=== PATIENT | female | born 1935 | race Caucasian/White ===

== ENCOUNTER 2020-05-28 08:28 | Outpatient (REF) | payer MEDICARE, SELFPAY ==
--- NOTE | 2020-05-28 08:34 | MM_ITS ---
EXAMINATION: MM SCREENING DIGITAL BREAST TOMOSYNTHESIS, BILATERAL CLINICAL INFORMATION: Screening. Asymptomatic. The lifetime risk of breast cancer based on the Tyrer-Cuzick Model is 1%. COMPARISON: Mammography: 05/24/2019, 05/01/2018, 04/28/2017 TECHNIQUE: Digital breast tomosynthesis is performed in both the craniocaudal and mediolateral oblique views along with computer-aided detection (CAD). Synthesized 2D images are generated from the tomosynthesis. FINDINGS: There are scattered areas of fibroglandular density (ACR BI-RADS breast composition Category b). There are no significant masses, abnormal calcifications, or other abnormalities. Parenchymal pattern is similar to prior studies. No significant changes. MM/MM tomosynthesis screening BI IMPRESSION: No mammographic evidence of malignancy. ASSESSMENT: BI-RADS 1: Negative RECOMMENDATION: Routine annual mammography screening. This patient's information was entered into a reminder system with a target due date for their next mammogram.
== END 2020-05-28 08:29 | disposition home or self-care (01) ==
LOC: HO.MAMMO 08:28
PROVIDERS: PCP Nurse Practitioner Family; Visit Provider Nurse Practitioner Family
DX: Z12.31 Encounter for screening mammogram for malignant neoplasm of breast (principal)
CPT/HCPCS: 77063; 77067

== ENCOUNTER 2021-01-12 08:40 | Outpatient (REF) | payer MEDICARE, SELFPAY ==
[2021-01-12 09:44] LABS: CDiff Gene PCR NEGATIVE (Negative)
[2021-01-12 11:04] LABS: Leukocytes Stool Qualitative NEGATIVE (NEGATIVE)
[2021-01-15 14:07] LABS: Fecal Fat Qualitative Normal (Normal)
[2021-01-18 00:37] LABS: Pancreatic Elastase-1 >500 mcg/g
== END 2021-01-12 08:41 | disposition home or self-care (01) ==
LOC: HO.LNP 08:40
PROVIDERS: Visit Provider Internal Medicine Gastroenterology
DX: R10.11 Right upper quadrant pain (principal); R19.7 Diarrhea, unspecified
CPT/HCPCS: 82656; 82705; 87045; 87046; 87177; 87209; 87493; 89055

== ENCOUNTER 2021-01-29 08:16 | Outpatient (REF) | payer MEDICARE, SELFPAY ==
--- NOTE | ~2021-01-29 | US_ITS ---
EXAMINATION: US ABDOMEN COMPLETE CLINICAL INFORMATION: Right upper quadrant pain, diarrhea. COMPARISON: None TECHNIQUE: Real-time imaging of the abdominal viscera. FINDINGS: PANCREAS: Normal. ABDOMINAL AORTA: The proximal, mid, and distal segments are normal in caliber. INFERIOR VENA CAVA: Visualized portions are normal. LIVER: Normal. The liver is normal in size. The liver contour is normal. Parenchymal echogenicity is normal. No focal hepatic lesion. There is no intrahepatic biliary duct dilatation seen. GALLBLADDER: Normal. The gallbladder is physiologically distended without evidence of stones, sludge, polyps, wall thickening or pericholecystic fluid. COMMON BILE DUCT: Normal in caliber measuring 0.4 cm in diameter. RIGHT KIDNEY: Normal. No hydronephrosis. No renal calculi or focal parenchymal lesions. The kidney measures 8.5 cm in maximum dimension. LEFT KIDNEY: Normal. No hydronephrosis. No renal calculi or focal parenchymal lesions. The kidney measures 9.2 cm in maximum dimension. SPLEEN: Normal. The spleen measures 7.7 cm in maximum dimension. FREE FLUID: None. US/US abdomen complete IMPRESSION: No specific abnormality identified on abdominal ultrasound. No evidence of acute cholecystitis.
== END 2021-01-29 08:17 | disposition home or self-care (01) ==
LOC: HO.US 08:16
PROVIDERS: PCP Nurse Practitioner Family; Visit Provider Internal Medicine Gastroenterology
DX: R10.11 Right upper quadrant pain (principal); R19.7 Diarrhea, unspecified
CPT/HCPCS: 76700

== ENCOUNTER 2021-08-13 08:59 | Outpatient (REF) | payer MEDICARE, SELFPAY ==
--- NOTE | ~2021-08-13 | MM_ITS ---
EXAMINATION: BONE DENSITOMETRY CLINICAL INDICATION: Osteoporosis. COMPARISON: Previous BD dated 05/24/2019 and baseline BD dated 04/06/2007. TECHNIQUE: Using a [employer] DXA System (software version: 13.1) manufactured by [employer], dual-energy x-ray absorptiometry was performed of the lumbar spine and left hip. The images are of good technical quality. Summary results are attached. FINDINGS: AP SPINE L1-L4: Current: BMD 1.026 g/cm2, Z-score 0.9, T-score -1.3, osteopenia, 4.1% decrease from previous, 2.6% decrease from baseline (<5% change is not significant). Prior: BMD 1.070 g/cm2. Baseline: BMD 1.053 g/cm2. LEFT FEMUR, NECK: Current: BMD 0.800 g/cm2, Z-score 0.8, T-score -1.7, osteopenia. Prior: BMD 0.775 g/cm2. Baseline: BMD 0.799 g/cm2. LEFT FEMUR, TOTAL: Current: BMD 0.877 g/cm2, Z-score 1.4, T-score -1.0, normal, 1.7% decrease from previous, 4.8% decrease from baseline (<5% change is not significant). Prior: BMD 0.892 g/cm2. Baseline: BMD 0.921 g/cm2. IDENTIFIED RISK FACTORS: Height loss, menopause. HISTORY OF FRACTURE: None listed. MEDICATIONS: Calcium supplements or multivitamin, vitamin D. MM/XR DEXA axial skeleton IMPRESSION: 1. DIAGNOSIS: Osteopenia based on the lowest T-score value of -1.7 in the femoral neck applying World Health Organization criteria. 2. 10-YEAR FRACTURE RISK PREDICTION, FRAX: Major osteoporotic fracture (clinical spine, forearm, hip or shoulder) 13.4%. Hip fracture 4.0%. 3. Treatment Recommendations: NOF guidelines recommend consideration for treatment in postmenopausal women and men age 50 and older presenting with the following: -A hip or vertebral (clinical or morphometric) fracture. -T-score less than or equal to -2.5 at the femoral neck or spine after appropriate evaluation to exclude secondary causes. -Low bone mass at the hip or spine and a 10-year fracture probability by FRAX of greater than or equal to 3% for hip fracture or greater than or equal to 20% for major osteoporotic fracture based on the [place] adapted WHO algorithm. 4. Other Recommendations: All treatment decisions require clinical judgment and consideration of individual patient factors, including patient preferences, comorbidities, previous drug use, risk factors not captured in the FRAX model (e.g. frailty, falls, vitamin D deficiency, increased bone turnover, interval significant decline in bone density) and possible under or overestimation of fracture risk by FRAX. Additional medical evaluation for secondary cause of low bone mineral density may be appropriate. FUTURE SCAN RECOMMENDATION: People with diagnosed cases of osteoporosis or at high risk for fracture should have regular bone mineral density tests. For patients eligible for Medicare, routine testing is allowed once every 2 years. The testing frequency can be increased to one year for patients who have rapidly progressing disease, those who are receiving or discontinuing medical therapy to restore bone mass, or have additional risk factors.
--- NOTE | ~2021-08-13 | MM_ITS ---
EXAMINATION: MM SCREENING DIGITAL BREAST TOMOSYNTHESIS, BILATERAL CLINICAL INFORMATION: Screening. Asymptomatic. The lifetime risk of breast cancer based on the Tyrer-Cuzick Model is 0.5%. COMPARISON: Mammography: May 28, 2020 and studies dating back to April 05, 2016 TECHNIQUE: Digital breast tomosynthesis is performed in both the craniocaudal and mediolateral oblique views along with computer-aided detection (CAD). Synthesized 2D images are generated from the tomosynthesis. FINDINGS: The breasts are almost entirely fatty (ACR BI-RADS breast composition Category a). There are no significant masses, abnormal calcifications, or other abnormalities. MM/MM tomosynthesis screening BI IMPRESSION: There are no significant changes from prior study. ASSESSMENT: BI-RADS 1: Negative RECOMMENDATION: Routine annual mammography screening. This patient's information was entered into a reminder system with a target due date for their next mammogram.
== END 2021-08-13 09:00 | disposition home or self-care (01) ==
LOC: HO.MAMMO 08:59
PROVIDERS: PCP Nurse Practitioner Family; Visit Provider Nurse Practitioner Family
DX: Z12.31 Encounter for screening mammogram for malignant neoplasm of breast (principal); Z13.820 Encounter for screening for osteoporosis; M85.80 Other specified disorders of bone density and structure, unspecified site; Z78.0 Asymptomatic menopausal state; Z79.899 Other long term (current) drug therapy
CPT/HCPCS: 77063; 77067; 77080

== ENCOUNTER 2021-08-13 09:26 | Outpatient (REF) | payer MEDICARE, SELFPAY | END 2021-08-13 09:27 | disposition home or self-care (01) | LOC: HO.MAMMO 09:26 | PROVIDERS: Visit Provider Nurse Practitioner Family | DX: Z13.89 Encounter for screening for other disorder (principal) ==

== ENCOUNTER 2022-08-16 10:07 | Outpatient (REF) | payer MEDICARE, SELFPAY ==
--- NOTE | ~2022-08-16 | MM_ITS ---
EXAMINATION: MM SCREENING DIGITAL BREAST TOMOSYNTHESIS, BILATERAL CLINICAL INFORMATION: Screening. Asymptomatic. COMPARISON: Mammography: 08/13/2021, 05/28/2020, 05/24/2019 TECHNIQUE: Digital breast tomosynthesis is performed in both the craniocaudal and mediolateral oblique views along with computer-aided detection (CAD). Synthesized 2D images are generated from the tomosynthesis. FINDINGS: There are scattered areas of fibroglandular density (ACR BI-RADS breast composition Category b). There are no significant masses, abnormal calcifications, or other abnormalities. Parenchymal pattern is similar to prior studies. There is no developing density or architectural abnormality. The axilla and skin contours are unremarkable. No significant changes. MM/MM tomosynthesis screening BI IMPRESSION: No mammographic evidence of malignancy. ASSESSMENT: BI-RADS 1: Negative RECOMMENDATION: Routine annual mammography screening. This patient's information was entered into a reminder system with a target due date for their next mammogram.
== END 2022-08-16 10:08 | disposition home or self-care (01) ==
LOC: HO.MAMMO 10:07
PROVIDERS: PCP Nurse Practitioner Family; Visit Provider Nurse Practitioner Family
DX: Z12.31 Encounter for screening mammogram for malignant neoplasm of breast (principal)
CPT/HCPCS: 77063; 77067

== ENCOUNTER 2023-02-26 10:21 | Outpatient (AMB) | payer MEDICARE, SELFPAY ==
[2023-02-26 10:59] VITALS: BP 124/74; PULSE 71; TEMP 36.7; O2SAT 98; BMI 22.7
--- NOTE | 2023-02-26 10:59 | AM.OFFWIN_ITS ---
Intake Vital Signs 02/26/23 10:59 Height 5 ft 4 in Weight 132 lb 8 oz BMI 22.7 BP 124/74 Blood Pressure Location Lt brachial Position Sitting Pulse 71 Pulse Source Pulse Oximeter Temp 98.1 F Temp Source Oral Pulse Oximetry (%) 98 Oxygen Delivery Method Room Air Oxygen Flow Rate 98.1 Intake Visit Reasons: [employer]- Lt hand index infected? Intake Note: Patient cut finger opening a window on Tuesday, may be infected. Patient Tobacco Use Status: Former Tobacco user Allergies Penicillins [PCN] Allergy (Mild, Unverified 02/26/23 11:02) RASH Do you need a note to return to daycare/school/sports/work: No HPI HPI Comments History of Present Illness Details This is a 87-year-old female who presents to the office today for sick visit. Patient complaining of a wound to her left index finger, which she believes may be infected. Patient states she cut her finger on a window approximately 4 days ago. She has been washing the area with soap and water and covering it with a bandage. Patient started to notice purulence drainage and some mild erythema yesterday. She denies any fevers or chills. She otherwise feels well without any systemic symptoms. [facility] Social History Patient Tobacco Use Status: Former Tobacco user Review of Systems Const All systems reviewed & are unremarkable except as noted in HPI and below Reports no additional complaints Eyes Reports no additional complaints ENT Reports no additional complaints Card Reports no additional complaints Resp Reports no additional complaints GI Reports no additional complaints Reports no additional complaints Musc Reports no additional complaints Skin/Breast Reports system reviewed and no additional complaints, except as documented Neuro Reports no additional complaints Psych Reports no additional complaints Endo Reports no additional complaints Nish/Lymph Reports no additional complaints Aller/Immun Reports no additional complaints Physical Exam Vital Signs: Last Vital Signs Temp 98.1 F 02/26/23 10:59 Pulse 71 02/26/23 10:59 BP 124/74 02/26/23 10:59 Pulse Ox 98 02/26/23 10:59 Oxygen Delivery Method Room Air 02/26/23 10:59 Oxygen Flow Rate 98.1 02/26/23 10:59 BMI result Body Mass Index 22.7 Const General: cooperative, healthy appearing, no acute distress and well developed Orientation/consciousness: patient oriented x3 HEENT Head: Yes normal to inspection Ears: hearing grossly normal bilaterally General nose exam: Normal external nose present Face and sinus: Yes normal facial exam Mouth: Normal oral and palatal mucosa present Eyes General: appearance normal, both eyes and all related structures Pupils: Equal, round and reactive pupils present EOM: EOMs intact bilaterally Resp Effort & Inspection: normal respiratory effort and no respiratory distress Auscultation: clear to auscultation bilaterally Cardio Rate: regular rate Rhythm: regular rhythm Heart sounds: no gallops, no murmurs and no rubs Peripheral pulses: Peripheral pulses 2+ throughout GI Inspection: No distended Palpation (GI): Soft to palpation and nontender Auscultation: normal bowel sounds Skin Other: Small linear abrasion to the palmar aspect of the distal phalanx of the left 2nd finger with very mild surrounding erythema. No drainage noted upon my evaluation. The abrasion appears to be healing with granulation tissue present. No lymphangitic streaking. General skin exam: no rashes or lesions noted Neuro General: patient oriented x3 Cranial nerves: Yes CN's II-XII intact bilaterally and Yes Equal, round and reactive pupils present Gait exam (Neuro): Normal gait present Motor exam (neuro): 5/5 motor strength present throughout Extrem General: Yes normal to inspection, Yes full ROM and Yes no clubbing, cyanosis or edema Psych Appearance: grossly normal Mental Status: mental status grossly normal Assessment & Plan Assessment & Plan (1) Abrasion of left index finger: Code(s): S60.411A - Abrasion of left index finger, initial encounter (2) Cellulitis of left finger: Code(s): L03.012 - Cellulitis of left finger Plan This is an 87-year-old female who presents to the office with an abrasion to her left index finger with erythema and drainage. Upon my evaluation, there is a well-healing linear abrasion to the left index finger with mild surrounding erythema and no purulence drainage. History and physical most consistent with mild cellulitis surrounding abrasion of the left index finger. Patient's vital signs are stable, her physical exam is otherwise benign, and she is overall nontoxic appearing. Patient is safe to be discharged home. Bacitracin was applied and a bandage was applied to the finger. Patient was sent home on p.o. sulfamethoxazole trimethoprim twice daily x5 days. Patient was advised to take probiotics while she is using antibiotics. She was advised to follow-up here or proceed directly to the emergency room if he were to develop worsening erythema, worsening drainage, fever/chills, or lymphangitic streaking. Patient verbalizes her understanding and she is in agreement with the plan. Medications: New sulfamethoxazole-trimethoprim 800-160 mg 1 tab PO BID 10 tabs 0RF Coding Level of Care Code New Pt Level 3 (61539) Diagnoses Abrasion of left index finger S60.411A Cellulitis of left finger L03.012
== END 2023-02-26 11:52 | disposition home or self-care (01) ==
PROVIDERS: PCP Nurse Practitioner Family; Visit Provider Physician Assistant Medical
DX: S60.411A Abrasion of left index finger, initial encounter (principal); L03.012 Cellulitis of left finger
CPT/HCPCS: 99203

== ENCOUNTER 2023-04-04 09:04 | Outpatient (AMB) | payer MEDICARE, SELFPAY ==
[2023-04-04 09:15] VITALS: BP 122/70; PULSE 70; TEMP 36.6; O2SAT 97; BMI 22.7
--- NOTE | 2023-04-04 09:15 | MHC.OFFWIV ---
Intake Vital Signs 04/04/23 09:15 Height 5 ft 4 in Weight 59.874 kg BMI 22.7 BP 122/70 Blood Pressure Location Lt brachial Position Sitting Pulse 70 Pulse Source Pulse Oximeter Temp 97.9 F Temp Source Temporal Artery Scan Pulse Oximetry (%) 97 Intake Visit Reasons: EP LT leg pain Intake Note: pt is here for c/o left leg pain Patient Tobacco Use Status: Former Tobacco user Allergies Penicillins [PCN] Allergy (Mild, Verified 04/04/23 09:17) RASH Do you need a note to return to daycare/school/sports/work: Yes HPI EP LT leg pain HPI Details Patient presents with left knee pain after some missed stepping on stairs 2 weeks ago. She notes the pain is comes and goes but is becoming more frequent and more painful. She denies fall, history of issues with this knee. She does admit to clicking and some weakness with the knee. No edema redness of the knee or lower leg. She has taken Tylenol with occasional relief. [facility] Social History Patient Tobacco Use Status: Former Tobacco user Review of Systems Const Reports as per HPI and Reports no additional complaints Musc Reports no additional complaints and Reports as per HPI Skin/Breast Denies lesions Neuro Reports no additional complaints and Reports as per HPI Physical Exam Vital Signs: Last Vital Signs Temp 97.9 F 04/04/23 09:15 Pulse 70 04/04/23 09:15 BP 122/70 04/04/23 09:15 Pulse Ox 97 04/04/23 09:15 BMI result Body Mass Index 22.7 Const General: cooperative, comfortable and no acute distress Orientation/consciousness: patient oriented x3 Resp Effort & Inspection: normal respiratory effort Auscultation: clear to auscultation bilaterally Cardio Rate: regular rate Rhythm: regular rhythm Heart sounds: S1 normal heart sound present and S2 normal heart sound present Neuro General: patient oriented x3 Extrem Right lower extremity: normal to inspection Left lower extremity: normal to inspection, full ROM, normal capillary refill, hip/thigh Details: normal to inspection and normal ROM and knee Details: normal to inspection, abnormal ROM Details: pain with active ROM (Flexion past 90 degrees in full extension pain seems to be in the distal lateral hamstring) and pain with passive ROM (Same ranges active), Jae's Test Details: positive medially, crepitus Location: at the knee and other (No calf tenderness no redness no calor no palpable cord no edema); no tenderness (Cannot elicit joint line or patellar tenderness nor tenderness of the musculature or calf.), no swelling, no abrasions, no ecchymosis and no unusual warmth; no cyanosis, no edema and joint enlargement noted Results Reviewed Results Reviewed: X-ray of left knee contemporaneously read by me without acute finding or severe DJD will report radiology results as available at different. Assessment & Plan Assessment & Plan (1) Knee pain, acute: Code(s): M25.569 - Pain in unspecified knee Qualifiers: Laterality: left Qualified Code(s): M25.562 - Pain in left knee Plan: Advised patient of taking Tylenol as directed consistently for several days. Rest ice and elevate as much as possible. Avoid stairs when possible or lead with good leg as needed. I did offer her a PT referral she declines at this time. I advised her if symptoms do not improve over the next week or 2 she should follow up with PCP to consider ortho referral or revisit considering physical therapy. Orders: Orders XR knee LT 4V Today M25.569 - Pain in unspecified knee Coding Level of Care Code New Pt Level 4 (04949) Diagnoses Acute pain of left knee M25.562 Laterality: left
== END 2023-04-04 09:54 | disposition home or self-care (01) ==
PROVIDERS: PCP Nurse Practitioner Family; Visit Provider Physician Assistant
DX: M25.562 Pain in left knee (principal)
CPT/HCPCS: 99204

== ENCOUNTER 2023-04-04 09:26 | Outpatient (REF) | payer MEDICARE, SELFPAY ==
--- NOTE | ~2023-04-04 | XR_ITS ---
EXAMINATION: XR KNEE, LEFT CLINICAL INFORMATION: Pain COMPARISON: None available. TECHNIQUE: Four views of the left knee. FINDINGS: Osteopenia. Bone alignment is normal. No fracture or dislocation. The joint spaces are normal. There is a cortical thickening and increased sclerosis of the lateral distal femoral shaft, question representing an old fibrous cortical defect or nonossifying fibroma. There is no joint effusion. Mild atherosclerotic disease. XR/XR knee LT 4V IMPRESSION: Osteopenia. Increased cortical sclerosis of the lateral distal femoral shaft, question representing an old nonossifying fibroma or fibrous cortical defect. This could be further evaluated with bone scan if clinically indicated.
== END 2023-04-04 09:27 | disposition home or self-care (01) ==
LOC: HO.HMGCX 09:26
PROVIDERS: PCP Nurse Practitioner Family; Visit Provider Physician Assistant
DX: M25.562 Pain in left knee (principal)
CPT/HCPCS: 73564

== ENCOUNTER 2023-08-31 13:28 | Outpatient (REF) | payer MEDICARE, SELFPAY ==
--- NOTE | ~2023-08-31 | MM_ITS ---
EXAMINATION: BONE DENSITOMETRY CLINICAL INDICATION: Osteopenia. COMPARISON: Previous BD dated 08/13/2021 and baseline BD dated 04/06/2007. TECHNIQUE: Using a [employer] DXA System (software version: 13.1) manufactured by [employer], dual-energy x-ray absorptiometry was performed of the lumbar spine and left hip. The images are of good technical quality. Summary results are attached. FINDINGS: LEFT FEMUR, NECK: Current: BMD 0.779 g/cm2, Z-score 0.6, T-score -1.9, osteopenia. Prior: BMD 0.800 g/cm2. Baseline: BMD 0.799 g/cm2. LEFT FEMUR, TOTAL: Current: BMD 0.843 g/cm2, Z-score 1.1, T-score -1.3, osteopenia, 3.9% decrease from previous, 8.5% decrease from baseline (<5% change is not significant). Prior: BMD 0.877 g/cm2. Baseline: BMD 0.921 g/cm2. AP SPINE L1-L4: Current: BMD 1.019 g/cm2, Z-score 0.7, T-score -1.3, osteopenia, 0.7% decrease from previous, 3.2% decrease from baseline (<5% change is not significant). Prior: BMD 1.026 g/cm2. Baseline: BMD 1.053 g/cm2. IDENTIFIED RISK FACTORS: Menopause. HISTORY OF FRACTURE: None listed. MEDICATIONS: Calcium, vitamin D. MM/XR DEXA axial skeleton IMPRESSION: 1. DIAGNOSIS: Osteopenia based on the lowest T-score value of -1.9 in the femoral neck applying World Health Organization criteria. 2. 10-YEAR FRACTURE RISK PREDICTION, FRAX: Major osteoporotic fracture (clinical spine, forearm, hip or shoulder) 15.1%. Hip fracture 4.7%. 3. Treatment Recommendations: NOF guidelines recommend consideration for treatment in postmenopausal women and men age 50 and older presenting with the following: -A hip or vertebral (clinical or morphometric) fracture. -T-score less than or equal to -2.5 at the femoral neck or spine after appropriate evaluation to exclude secondary causes. -Low bone mass at the hip or spine and a 10-year fracture probability by FRAX of greater than or equal to 3% for hip fracture or greater than or equal to 20% for major osteoporotic fracture based on the [place] adapted WHO algorithm. 4. Other Recommendations: All treatment decisions require clinical judgment and consideration of individual patient factors, including patient preferences, comorbidities, previous drug use, risk factors not captured in the FRAX model (e.g. frailty, falls, vitamin D deficiency, increased bone turnover, interval significant decline in bone density) and possible under or overestimation of fracture risk by FRAX. Additional medical evaluation for secondary cause of low bone mineral density may be appropriate. FUTURE SCAN RECOMMENDATION: People with diagnosed cases of osteoporosis or at high risk for fracture should have regular bone mineral density tests. For patients eligible for Medicare, routine testing is allowed once every 2 years. The testing frequency can be increased to one year for patients who have rapidly progressing disease, those who are receiving or discontinuing medical therapy to restore bone mass, or have additional risk factors.
== END 2023-08-31 13:29 | disposition home or self-care (01) ==
LOC: HO.MAMMO 13:28
PROVIDERS: PCP Nurse Practitioner Family; Visit Provider Nurse Practitioner Family
DX: Z12.31 Encounter for screening mammogram for malignant neoplasm of breast (principal); Z13.820 Encounter for screening for osteoporosis; Z78.0 Asymptomatic menopausal state; M85.80 Other specified disorders of bone density and structure, unspecified site
CPT/HCPCS: 77063; 77067; 77080

== ENCOUNTER → 2023-08-31 14:00 | Outpatient (BNV) | payer MEDICARE, SELFPAY | PROVIDERS: PCP Nurse Practitioner Family; Visit Provider Radiology Diagnostic Radiology | DX: Z12.31 Encounter for screening mammogram for malignant neoplasm of breast (principal) | CPT/HCPCS: 77063; 77067 ==

== ENCOUNTER 2024-01-11 11:04 | Outpatient (AMB) | payer MEDICARE, SELFPAY ==
--- NOTE | 2024-01-11 11:16 | MHC.OFFWIV ---
Intake Vital Signs 01/11/24 11:17 Height 5 ft 4 in Weight 132 lb BMI 22.7 BP 120/70 Blood Pressure Location Rt brachial Position Sitting Pulse 72 Pulse Source Pulse Oximeter Temp 97.9 F Temp Source Temporal Artery Scan Pulse Oximetry (%) 97 Intake Visit Reasons: EP flew ears now blocked Intake Note: pt is here for ears feeling blocked Patient Tobacco Use Status: Former Tobacco user Allergies Penicillins [PCN] Allergy (Mild, Verified 01/11/24 11:17) RASH Do you need a note to return to daycare/school/sports/work: No HPI HPI Comments History of Present Illness Details Patient is an 88-year-old female complaining of feeling like her ears are blocked and she feels them popping throughout the day. She states this is occurring in both of her ears that it has been going on for 4 days. She states 4 days ago, she flew in an airplane. She states this happened before many years ago but it cleared up on its own, this time it is not. She denies any changes in her hearing, or pain in her ears. She admits to wearing hearing aids daily. [facility] Social History Patient Tobacco Use Status: Former Tobacco user Review of Systems Const All systems reviewed & are unremarkable except as noted in HPI and below Physical Exam Vital Signs: Last Vital Signs Temp 97.9 F 01/11/24 11:17 Pulse 72 01/11/24 11:17 BP 120/70 01/11/24 11:17 Pulse Ox 97 01/11/24 11:17 BMI result Body Mass Index 22.7 Const General: cooperative, healthy appearing, comfortable and no acute distress Orientation/consciousness: patient oriented x3 HEENT Head: Yes normal to inspection Ears: external ears normal, TM's normal bilaterally, EAC's normal and mastoids normal General nose exam: Normal external nose present Face and sinus: Yes normal facial exam Resp Effort & Inspection: normal respiratory effort and able to speak in complete sentences Neuro General: patient oriented x3 Assessment & Plan Assessment & Plan (1) Blocked ear: Code(s): H93.8X9 - Other specified disorders of ear, unspecified ear Qualifiers: Laterality: bilateral Qualified Code(s): H93.8X3 - Other specified disorders of ear, bilateral Plan: Will send hydroxyzine to pharmacy, denied see anything remarkable on physical exam but hopefully this will dry up any fluid she has behind the TM. Recommended following up with her PCP if no resolution in symptoms. Did discuss this medication will make her tired, not to drink alcohol or drive a car while taking the medication. Recommended taking it only at night if possible. Plan See above Medications: New hydroxyzine HCl 10 mg PO QID 20 tabs 0RF Coding Level of Care Code New Pt Level 3 (05310) Diagnoses Sensation of plugged ear on both sides H93.8X3 Laterality: bilateral
[2024-01-11 11:17] VITALS: BP 120/70; PULSE 72; TEMP 36.6; O2SAT 97; BMI 22.7
== END 2024-01-11 11:34 | disposition home or self-care (01) ==
PROVIDERS: PCP Nurse Practitioner Family; Visit Provider Physician Assistant
DX: H93.8X3 Other specified disorders of ear, bilateral (principal)
CPT/HCPCS: 99203

== ENCOUNTER 2024-10-31 11:28 | Outpatient (AMB) | payer MEDICARE, SELFPAY ==
--- NOTE | 2024-10-31 11:53 | MHC.OFFWIV ---
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 - Initially mild but worsened yesterday and intensified today. - She noted the development of muscle spasms yesterday, including episodes in the shower. - The pain is primarily a dull ache across the back, not extending to the buttocks or legs. It is not sharp or shooting. - The patient denies previous similar pain events, recent injuries, or an increase in physical activity. - Ibuprofen was taken for relief, with noted improvement post-administration on the day of evaluation. - Heating pads are occasionally used with some relief. - Discomfort is exacerbated by positional changes, especially upon standing, but not disrupting sleep. Physical Exam General: Cooperative, healthy appearing, comfortable, no acute distress and well developed Orientation: Patient oriented x3 Limitations: No limitations Head: Normal to inspection Ears: Hearing grossly normal bilaterally Nose: Normal External nose present Face and sinus: Normal facial exam Eyes: Appearance normal, both eyes and all related structures Neck: Normal visual inspection and Yes full ROM Respiratory: Normal respiratory effort and able to speak in complete sentences. Back/spine: No TTP cervical, thoracic or lumbar spine, no step off deformities, ttp bilat paraspinous lumbar muscles Skin: No rashes or lesions noted Neuro: Patient oriented x3 Extremities: Normal to inspection PFSH Social History Patient Tobacco Use Status: Former Tobacco user Review of Systems Const All systems reviewed & are unremarkable except as noted in HPI and below Physical Exam Vital Signs: Last Vital Signs Temp 97.5 F 10/31/24 11:54 Pulse 68 10/31/24 11:54 BP 120/66 10/31/24 11:54 Pulse Ox 98 10/31/24 11:54 Oxygen Delivery Method Room Air 10/31/24 11:54 BMI result Body Mass Index 23.9 Assessment & Plan Assessment & Plan (1) Spasm of lumbar paraspinous muscle: Code(s): M62.830 - Muscle spasm of back Plan: The patient is advised to initiate treatment with a muscle relaxant to address acute lower back pain and associated muscle spasms. A single dose is recommended initially to gauge response and minimize side effects such as drowsiness, with the caveat of increasing to two tablets, if necessary. Ibuprofen can be used in conjunction, especially at nighttime, to aid in symptom control. The patient is counseled to avoid activities requiring full alertness after taking the muscle relaxer. Heating pads are suggested due to their effectiveness in reducing discomfort. The electronic prescription is sent to her preferred pharmacy for convenient pickup. Patient was informed and verbally consented to the use of an ambient scribe for clinic note documentation during this visit. Medications: New cyclobenzaprine 5 mg PO Q8H PRN 20 tabs 0RF Muscle Spasm Coding Level of Care Code New Pt Level 3 (64736) Diagnoses Spasm of lumbar paraspinous muscle M62.830
[2024-10-31 11:54] VITALS: BP 120/66; PULSE 68; TEMP 36.4; O2SAT 98; BMI 23.9
--- OUTSIDE RECORDS SUMMARY | 2024-10-31 13:08 | XMS_ITS | Continuity of Care Document ---
Author Organization [facility] [address] [place] [address] Phone [phone] Social History Type Date Description Comments Sex Unknown Medical Devices Description No Information Available Encounters Description No Information Available Assessments Description No Information Available Plan of Treatment No Information Available Functional Status Description No Information Available Mental Status Description No Information Available Referrals Description No Information Available
== END 2024-10-31 13:13 | disposition home or self-care (01) ==
PROVIDERS: PCP Nurse Practitioner Family; Visit Provider Physician Assistant
DX: M62.830 Muscle spasm of back (principal)

== ENCOUNTER → 2024-10-31 11:28 | Outpatient (BNVA) | payer MEDICARE, SELFPAY | PROVIDERS: PCP Nurse Practitioner Family; Visit Provider Physician Assistant | DX: M62.830 Muscle spasm of back (principal) | CPT/HCPCS: 99202 ==